=== PATIENT | female | born 1970 | race African-American/Black ===

== ENCOUNTER 2023-05-13 13:11 | Emergency (ER) | payer MEDICARE, MEDICAID ==
[~2023-05-13] VITALS: Ht 167.6 cm; Wt 120.0 kg
[~2023-05-13 13:11] MED LIST: AMOX/K CLAV875 M1 PO; CIPRO IV; CIPRO500 MG PO; CLOTRIMAZOLE13 TOP; CUBICIN500 MG IV; DEX IV; E.E.S. 400400 MG OR; HYDROCHLORO25 MG/TAB PO; HYDROCHLOROT12.5 MG PO; LISI20TA5 PO; LISINOPRIL20 M1 PO; LISINOPRIL20 MG PO; NAPROSYN500 MG PO; NO; NORVASC PO; ROBITUSSIN AC10 ML OR; [UNRECOGNIZED DRUG - OTHER] IV
[2023-05-13 13:22] VITALS: BP 207/87
[2023-05-13 13:31] VITALS: BP 173/76
[2023-05-13 13:46] VITALS: BP 166/85
[2023-05-13 14:01] VITALS: BP 180/96
[2023-05-13] MEDS ORDERED: NAPROXEN500 MG PO (14:07)
[2023-05-13 14:16] VITALS: BP 177/97
[2023-05-13 14:32] VITALS: BP 177/97
== END 2023-05-13 14:38 | disposition home or self-care (01) ==
LOC: ED 13:11
DX: S83.92XA Sprain of unspecified site of left knee, initial encounter (principal); W01.0XXA Fall on same level from slipping, tripping and stumbling without subsequent striking against object, initial encounter; Y92.512 Supermarket, store or market as the place of occurrence of the external cause